=== PATIENT | female | born 1970 | race Two or more races ===

== ENCOUNTER 2023-08-03 10:58 | Emergency (ER) | payer MEDICAID, OTHER ==
[~2023-08-03] VITALS: Ht 149.9 cm; Wt 62.8 kg
[2023-08-03 11:51] LABS: Urine Bacteria NONE SEEN /hpf (None Seen); Urine Blood 1+ /uL (Negative); Urine Clarity Clear (Clear); Urine Color Yellow (Yellow); Urine Mucus FEW (None Seen); Urine Protein, UAD Negative (Negative); Urine Specific Gravity 1.024 (1.001-1.035); Urine WBC 2 /hpf (0 - 5)
[2023-08-03 11:57] LABS: Eosinophils # (auto) 0.4 10 ^3/uL (0-0.8); Lymphocytes # (auto) 2.3 10 ^3/uL (0.4-5.4); Mean Corpuscular Hgb Conc. 31.4 g/dL (32.0-36.0); Monocytes # (auto) 0.5 10 ^3/uL (0-1.3); Neutrophils # (auto) 3.2 10 ^3/uL (1.6-8.6); Nucleated Red Blood Cells % 0.1 %
[2023-08-03 11:59] LABS: Basophils # (auto) 0 10 ^3/uL (0-0.2); Basophils % (auto) 0.4 % (0.0-2.0); Eosinophils % (auto) 5.6 % (0.0-7.0); Hematocrit 31.9 % (36.0-46.0); Lymphocytes % (auto) 35.9 % (10.0-50.0); Mean Corpuscular Hemoglobin 18.5 pg (28.0-32.0); Mean Corpuscular Volume 58.8 fL (80.0-100.0); Monocytes % (auto) 8.1 % (0.0-12.0); Red Blood Cells 5.43 10^6/uL (4.0-5.20); Red Cell Distribution Width 20.6 % (11.8-14.3); White Blood Cell 6.4 10^3/uL (4.4-10.8)
[2023-08-03 12:33] LABS: Alanine Aminotransferase 38 U/L (7-40); Albumin 4.3 g/dL (3.2-4.8); Alkaline Phosphatase 317 U/L (46-116); Anion Gap 4 (5-15); Aspartate Aminotransferase 19 U/L (13-40); BUN/Creatinine Ratio 16.7 (10.0-20.0); Blood Urea Nitrogen 13 mg/dL (9-23); Calcium 9.9 mg/dL (8.7-10.4); Carbon Dioxide 28 mmol/L (20-30); Chloride 107 mmol/L (98-107); Glucose 107 mg/dL (74-106); Potassium 4.4 mmol/L (3.5-5.1); Sodium 139 mmol/L (136-145); Total Protein 7.3 g/dL (5.7-8.2)
[2023-08-03] MEDS ORDERED: FER325T PO (14:51)
[2023-08-03 15:07] VITALS: BP 134/64; PULSE 70; RESP 18; TEMP 98.3; O2SAT 97
== END 2023-08-03 15:09 | disposition home or self-care (01) ==
LOC: ER 10:58
DX: D64.9 Anemia, unspecified (principal)
CPT/HCPCS: 36415; 70450; 74176; 80053; 81001; 85025

== ENCOUNTER 2024-05-10 12:51 | Emergency (ER) | payer MEDICAID ==
[~2024-05-10] VITALS: Ht 149.9 cm; Wt 54.5 kg
[~2024-05-10 12:51] MED LIST: FER325T PO; LIDO2SOL26 MT
[2024-05-10 14:46] VITALS: BP 110/80; PULSE 73; RESP 18; TEMP 97.4; O2SAT 99
[2024-05-10] MEDS: KETOROLAC TROMETH 30 MG/ML 1ML VIAL IM ONE (15:34)
[2024-05-10] MEDS ORDERED: IBUP1TAB5 PO (16:59)
== END 2024-05-10 17:46 | disposition home or self-care (01) ==
LOC: ER 12:51
DX: S82.092A Other fracture of left patella, initial encounter for closed fracture (principal); Z86.2 Personal history of diseases of the blood and blood-forming organs and certain disorders involving the immune mechanism; Z90.710 Acquired absence of both cervix and uterus; Z88.5 Allergy status to narcotic agent; Z88.0 Allergy status to penicillin; Z79.899 Other long term (current) drug therapy; X58.XXXA Exposure to other specified factors, initial encounter; Y93.89 Activity, other specified; Y92.89 Other specified places as the place of occurrence of the external cause; Y99.8 Other external cause status
CPT/HCPCS: 73562; 96372; 99283; J1885

== ENCOUNTER 2024-10-18 12:40 | Emergency (ER) | payer MEDICAID ==
[~2024-10-18] VITALS: Ht 162.6 cm; Wt 66.0 kg
[~2024-10-18 12:40] MED LIST changes: +IBUP-1456 PO; +IBUP1TAB5 PO
[2024-10-18] MEDS: SODIUM CHLORIDE 0.9% 1,000 ML IV ONE (14:36)
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
[2024-10-18] MEDS ORDERED: LIDO5DIS21 TOP (15:27)
[2024-10-18] MEDS ORDERED: CYCL-839 PO (15:27)
[2024-10-18] MEDS ORDERED: IBUP-1454 PO (15:27)
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
[2024-10-18 15:49] VITALS: BP 113/66; PULSE 84; RESP 20; TEMP 97.7; O2SAT 100
== END 2024-10-18 16:10 | disposition home or self-care (01) ==
LOC: EDUNIT# 12:40 → ER 12:40 → EDBD 12:40 → ER 16:10
DX: M25.512 Pain in left shoulder (principal); R07.89 Other chest pain; R51.9 Headache, unspecified; Z79.1 Long term (current) use of non-steroidal anti-inflammatories (NSAID); Z88.0 Allergy status to penicillin; Z88.5 Allergy status to narcotic agent; Z90.710 Acquired absence of both cervix and uterus; V43.52XA Car driver injured in collision with other type car in traffic accident, initial encounter; Y93.89 Activity, other specified; Y92.410 Unspecified street and highway as the place of occurrence of the external cause; Y99.8 Other external cause status
CPT/HCPCS: 70450; 73030; 73110

== ENCOUNTER 2024-10-20 10:26 | Emergency (ER) | payer MEDICAID ==
[~2024-10-20] VITALS: Ht 149.9 cm; Wt 57.0 kg
[~2024-10-20 10:26] MED LIST changes: +CYCL-839 PO; +IBUP-1454 PO; +LIDO5DIS21 TOP
[2024-10-20 12:01] VITALS: BP 138/77; PULSE 94; RESP 18; TEMP 98.1; O2SAT 100
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
[2024-10-20] MEDS ORDERED: NAPR-746 PO (12:38)
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
== END 2024-10-20 12:46 | disposition home or self-care (01) ==
LOC: ER 10:26
DX: S63.8X2A Sprain of other part of left wrist and hand, initial encounter (principal); Z90.710 Acquired absence of both cervix and uterus; Z79.1 Long term (current) use of non-steroidal anti-inflammatories (NSAID); Z88.0 Allergy status to penicillin; Z88.5 Allergy status to narcotic agent; Z86.2 Personal history of diseases of the blood and blood-forming organs and certain disorders involving the immune mechanism; Z79.899 Other long term (current) drug therapy; Y93.I9 Activity, other involving external motion; Y92.89 Other specified places as the place of occurrence of the external cause; Y99.8 Other external cause status
CPT/HCPCS: 73130